=== PATIENT | male | born 1995 | race Caucasian/White ===

== ENCOUNTER 2020-03-19 18:20 | Outpatient (CLI) | payer OTHER | END 2020-03-19 23:59 | disposition critical access hospital (66) | LOC: EMS 18:20 | PROVIDERS: ATTEND Surgery | DX: S49.92XA Unspecified injury of left shoulder and upper arm, initial encounter (principal); V29.40XA Motorcycle driver injured in collision with unspecified motor vehicles in traffic accident, initial encounter; Y92.410 Unspecified street and highway as the place of occurrence of the external cause | CPT/HCPCS: A0425; A0427 ==

== ENCOUNTER 2020-03-19 18:36 | Emergency (ER) | payer OTHER ==
[2020-03-19] MEDS ORDERED: SODIUM CHLORIDE 0.9% 1,000 ML IV STA (18:45)
[2020-03-19] MEDS ORDERED: HYDROmorphone 1 MG/ML CARPUJECT IVP STA ×4 (18:52→20:14)
[2020-03-19] MEDS ORDERED: HYDROmorphone 2 MG/ML VIAL IVP STA (18:58)
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
[2020-03-19] MEDS ORDERED: KETOROLAC 30 MG/ML VIAL IVP STA (19:36)
[2020-03-19] MEDS ORDERED: PROPOFOL 200 MG/20 ML VIAL IVP STA (19:59)
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
[2020-03-19] MEDS ORDERED: PROPOFOL 200 MG/20 ML VIAL IVP ONE (20:35)
--- NOTE | 2020-03-19 20:58 | XRAY Report ---
PROCEDURE: Shoulder 2 View LT INDICATIONS: post reduction TECHNIQUE: 2 views of the shoulder were acquired. COMPARISON: X-ray shoulder 03/19/2020 FINDINGS: Bones: There is been interval reduction of previous dislocation. There is good anatomic alignment. No suspicious bony lesions. Visualized ribs appear intact. Soft tissues: No suspicious soft tissue calcifications. IMPRESSION: Interval reduction with good anatomic alignment. No visualized fracture. Reviewed by: Cherry Hull MD on 03/19/2020 8:57 PM PST Approved by: Cherry Hull MD on 03/19/2020 8:57 PM PST Station ID: [id number]
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
[2020-03-19] MEDS ORDERED: HYDROcod/ACET 5/325 Prepack 4 PO STA (21:22)
[2020-03-19 22:26] VITALS: BP 132/85
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
== END 2020-03-19 22:20 | disposition home or self-care (01) ==
LOC: ED 18:36
DX: S43.015A Anterior dislocation of left humerus, initial encounter (principal); S80.211A Abrasion, right knee, initial encounter; V23.4XXA Motorcycle driver injured in collision with car, pick-up truck or van in traffic accident, initial encounter; Y92.410 Unspecified street and highway as the place of occurrence of the external cause
CPT/HCPCS: 23655; 72125; 73030; 99152; 99283; J1170; 80053; 83690; 85025; 85610; 86850; 86900; 86901

== ENCOUNTER 2020-07-09 09:00 | Day surgery (SDC) | payer OTHER ==
[~2020-07-09 09:00] MED LIST: cefTRIAXone 2 GM VIAL ONE
[2020-07-09] MEDS ORDERED: LIDOCAINE-MPF 2% 5 ML VIAL ONE (09:16)
[2020-07-09] MEDS ORDERED: PROPOFOL 200 MG/20 ML VIAL IVP ONE (09:16)
[2020-07-09] MEDS ORDERED: ROPIVACAINE 0.5% PF 20 ML AMPULE ONE (09:17)
[2020-07-09] MEDS ORDERED: LACTATED RINGERS 1,000 ML IV ONE ×2 (09:38→13:45)
[2020-07-09] MEDS ORDERED: MIDAZOLAM 2 MG/2 ML VIAL ONE (09:42)
[2020-07-09] MEDS ORDERED: METOCLOPRAMIDE 10 MG/2 ML VIAL IVP PRN (09:45)
[2020-07-09] MEDS ORDERED: ONDANSETRON 4 MG/2 ML VIAL IVP PRN ×2 (09:45→13:59)
[2020-07-09] MEDS ORDERED: ePHEDrine 50 MG/ML VIAL IVP PRN (09:45)
[2020-07-09] MEDS ORDERED: ATROPINE ABBOJECT 1 MG/10 ML SYRINGE IVP PRN (09:45)
[2020-07-09] MEDS ORDERED: HYDROmorphone 0.5 MG/0.5 ML SYRINGE IVP PRN (09:45)
[2020-07-09] MEDS ORDERED: MORPHINE 2 MG/ML CARPUJECT IVP PRN (09:45)
[2020-07-09] MEDS ORDERED: NALOXONE 0.4 MG/ML VIAL IVP PRN (09:45)
[2020-07-09] MEDS ORDERED: fentaNYL 100 MCG/2 ML VIAL IVP PRN (09:45)
--- NOTE | 2020-07-09 09:45 | ANESTHESIA ---
Pre-Anesthesia VS, & Labs - Diagnosis left shoulder labral tear - Procedure left shoulder arthroscopy, labral repair, hagl repair Height: 6 ft 4 in Weight (kg): 95.25 kg Body Mass Index: 25.5 BMI Classification: Overweight - NPO >8 hours Home Medications and Allergies Home Medications: Ambulatory Orders Mesalamine [Lialda] 2.4 gm PO 07/01/20 Mesalamine [Lialda] 2.4 gm PO 07/01/20 Allergies/Adverse Reactions: Allergies Allergy/AdvReac Type Severity Reaction Status Date / Time Penicillins Allergy Rash Verified 07/01/20 12:00 Anes History & Medical History - Anesthetic History Anesthesia Complications: reports: No previous complications - Medical History Cardiovascular: reports: None Pulmonary: reports: None Gastrointestinal: reports: None, Ulcerative colitis Urinary: reports: None Musculoskeletal: reports: Other Skin: reports: None Smoking Status: Never smoker History of Cancer?: No - Surgical History General: reports: Colonoscopy Exam General: Alert, Oriented x3 Dental: WNL Mouth Opening: Greater than 4 Fingerbreadths Neck Mobility: Normal Mallampati classification: I Thyromental Distance: greater than 6 cm Respiratory: Lungs clear Cardiovascular: Regular rate, Normal S1, Normal S2 Plan Anesthesia Type: General, Interscalene Block Consent for Procedure(s) Verified and Reviewed: Yes Code Status: Attempt Resuscitation ASA classification: 1-Healthy patient Is this case an emergency?: No
[2020-07-09] MEDS ORDERED: BUPIVACAINE 0.25% PF 30 ML VIAL ONE (09:56)
[2020-07-09] MEDS ORDERED: EPINEPHrine 1 MG/ML AMP ONE (09:56)
[2020-07-09] MEDS ORDERED: LACTATED RINGERS 1,000 ML IV SCH (10:00)
[2020-07-09] MEDS ORDERED: BUPIVACAINE 0.25% PF 30 ML VIAL SUBQ ONE (11:00)
[2020-07-09] MEDS ORDERED: EPINEPHrine 1 MG/ML AMP IR ONE (11:01)
[2020-07-09] MEDS ORDERED: KETOROLAC 30 MG/ML VIAL ONE (13:39)
[2020-07-09] MEDS ORDERED: fentaNYL 100 MCG/2 ML VIAL ONE (13:42)
[2020-07-09] MEDS ORDERED: oxyCODONE 5 MG TABLET PO PRN (13:59)
[2020-07-09] MEDS ORDERED: METOCLOPRAMIDE 10 MG/2 ML VIAL ONE (14:19)
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
[2020-07-09 15:41] VITALS: BP 129/57
--- NOTE | 2020-07-09 16:26 | ANESTHESIA POST OP EVALUATION ---
Anesthesia Post Eval - Post Anesthesia Eval Vitals: Last Vital Signs Temp 36.2 C L 07/09/20 14:36 Pulse 72 07/09/20 15:40 Resp 14 07/09/20 15:40 BP 129/57 L 07/09/20 15:40 Pulse Ox 98 07/09/20 15:40 CV Function Including HR & BP: positive: Stable Pain Control: positive: Satisfactory Nausea & Vomiting: positive: Negative Mental Status: positive: Patient Participates Respiratory Status: Airway Patent Hydration Status: Satisfactory Anesthesia Complications: positive: None
== END 2020-07-09 09:01 | disposition home or self-care (01) ==
LOC: SDS 09:00
PROVIDERS: ATTEND Orthopaedic Surgery
DX: S43.492A Other sprain of left shoulder joint, initial encounter (principal); S43.031A Inferior subluxation of right humerus, initial encounter; V23.4XXA Motorcycle driver injured in collision with car, pick-up truck or van in traffic accident, initial encounter; S14 Injury of nerves and spinal cord at neck level; Y92.410 Unspecified street and highway as the place of occurrence of the external cause; Y99.8 Other external cause status; E66.3 Overweight; Z68.25 Body mass index [BMI] 25.0-25.9, adult
CPT/HCPCS: 29806; C1713; J2765; J7120

== ENCOUNTER 2022-05-20 15:42 | Outpatient (CLI) | payer OTHER ==
--- NOTE | 2022-05-20 17:01 | MRI Report ---
PROCEDURE: LUMBAR SPINE WO INDICATIONS: LOW BACK PAIN TECHNIQUE: Noncontrast sagittal T1 spin echo and T2 fast echo, sagittal STIR, axial T1 and T2 fast spin echo thr ough the lumbar spine. In cases with scoliosis, additional coronal T2 fast spin echo may be performe d. COMPARISON: None. FINDINGS: Image quality: Excellent. Alignment and Curvature: There is normal bony alignment. Bone Marrow: Marrow is of normal overall signal. Reactive endplate changes are present at L4-5. No a cute vertebral body compression fractures. Spinal Cord: Conus medullaris terminates at the L1 level. Visualized cord demonstrates normal signa l and size. Paraspinous Soft Tissues: No paravertebral masses. T12-L1: Normal appearance. L1-L2: Normal appearance. L2-L3: Broad-based disc bulge. Mild facet and ligamentum flavum hypertrophy. Mild canal stenosis. Mild bilateral foraminal stenosis. L3-L4: Broad based disc bulge. No canal stenosis. Moderate facet ligamentum flavum hypertrophy. L4-L5: Mild disc desiccation and height loss. Broad based disc bulge. Mild facet ligamentum flavum hypertrophy. No canal stenosis. Mild right foraminal stenosis. L5-S1: Mild disc bulge. Mild facet sclerosis. No canal stenosis. Mild right foraminal stenosis. IMPRESSION: 1. Disc desiccation, height loss, and reactive endplate changes at L4-5. 2. Broad-based disc bulge and facet and ligamentum flavum hypertrophy at L2-3 with resultant mild can al stenosis. 3. No significant foraminal stenosis of the lumbar spine. Reviewed by: Susan Brumfield MD on 05/20/2022 4:59 PM PST Approved by: Susan Brumfield MD on 05/20/2022 4:59 PM PST Station ID: [id number]
== END 2022-05-20 15:43 | disposition home or self-care (01) ==
LOC: DI 15:42
PROVIDERS: ATTEND General Practice
DX: M51.36 Other intervertebral disc degeneration, lumbar region (principal); M48.061 Spinal stenosis, lumbar region without neurogenic claudication; M47.816 Spondylosis without myelopathy or radiculopathy, lumbar region

== ENCOUNTER 2022-08-19 15:43 | Outpatient (CLI) | payer OTHER ==
--- NOTE | 2022-08-19 20:08 | MRI Report ---
PROCEDURE: THORACIC SPINE WO INDICATIONS: LUMBAR DDD, MID BACK PAIN TECHNIQUE: Noncontrast sagittal T1 spine echo and T2 fast spin echo, sagittal STIR, axial T1 and T2 fast spin ec ho through the thoracic spine. COMPARISON: Correlation is made with prior lumbar MRI, 05/20/2022. Correlation is also made with prio r cervical spine CT, 03/19/2020 FINDINGS: Image quality: Diagnostic, with note made of motion artifact. Alignment and Curvature: There is normal bony alignment. Bone Marrow: Marrow is of normal overall signal. No acute vertebral body compression fractures. Spinal Cord: Visualized spinal cord is normal in size and signal. Paraspinous Soft Tissues: No paravertebral masses. Miscellaneous: On axial images, central canal and foramina appear widely patent at all scanned level s. IMPRESSION: No significant abnormality is seen. Specifically, no significant central canal narrowing or neuroforaminal narrowing can be seen. No significant disc pathology is seen. Reviewed by: Alfie Rodriguez MD on 08/19/2022 7:07 PM [facility] Approved by: Alfie Rodriguez MD on 08/19/2022 7:07 PM [facility] Station ID: [id number]
== END 2022-08-19 15:44 | disposition home or self-care (01) ==
LOC: DI 15:43
PROVIDERS: ATTEND Nurse Practitioner Family
DX: M51.36 Other intervertebral disc degeneration, lumbar region (principal)